=== PATIENT | male | born 2000 | race Two or more races ===

== ENCOUNTER 2023-03-15 12:47 | Emergency (ER) | payer SELFPAY ==
[~2023-03-15] VITALS: Ht 175.3 cm; Wt 112.0 kg
[2023-03-15] MEDS ORDERED: CLINDAMYCIN 600MG IV 50 ML IV ONE (13:45)
[2023-03-15] MEDS ORDERED: cefTRIAXone 1GM/50ML D5W 50 ML IV ONE (13:45)
[2023-03-15 14:45] VITALS: BP 151/61
[2023-03-15] MEDS ORDERED: CLINDAMYCIN HCL 150 MG CAP PO ONE (14:45)
== END 2023-03-15 13:46 | disposition short-term general hospital (02) ==
LOC: ER 12:47
DX: S81.011A Laceration without foreign body, right knee, initial encounter (principal); S40.211A Abrasion of right shoulder, initial encounter; S30.810A Abrasion of lower back and pelvis, initial encounter; S20.411A Abrasion of right back wall of thorax, initial encounter; V29.99XA Rider (driver) (passenger) of other motorcycle injured in unspecified traffic accident, initial encounter; Y93.89 Activity, other specified; Y92.89 Other specified places as the place of occurrence of the external cause; Y99.8 Other external cause status
CPT/HCPCS: 73590; 96365; 99285; J0696